=== PATIENT | male | born 1995 | race Two or more races ===

== ENCOUNTER 2023-12-06 14:16 | Emergency (ER) | payer SELFPAY ==
[~2023-12-06] VITALS: Ht 160 cm; Wt 73.5 kg
[2023-12-06 14:16] VITALS: TEMP 98.6
[2023-12-06] MEDS ORDERED: IBUPROFEN 600 MG TABLET ONE (14:56)
[2023-12-06] MEDS: IBUPROFEN 600 MG TABLET PO ONE (14:56)
[2023-12-06 16:12] VITALS: BP 142/80; O2SAT 99
== END 2023-12-06 16:40 | disposition left against medical advice (07) ==
LOC: ER 14:25
DX: M79.641 Pain in right hand (principal)
CPT/HCPCS: 73130-TC